=== PATIENT | female | born 1940 | race Asian ===

== ENCOUNTER → 2019-03-25 10:00 | Outpatient (CLI) | payer MEDICARE, OTHER, SELFPAY ==
--- NOTE | 2019-03-25 | DI.CT.S_ITS ---
PROCEDURE: CT ABDOMEN PELVIS W CON INDICATIONS: other specified disease of appendix TECHNIQUE: After the administration of oral and intravenous contrast, 5 mm thick sections acquired from the diaphragms to the symphysis. 5 mm thick coronal and sagittal reformats were performed. For radiation dose reduction, the following was used: automated exposure control, adjustment of mA and/or kV according to patient size. COMPARISON: [facility], , CT ABDOMEN/PELVIS WITH CONTRAST, 01/23/2018, 11:24. FINDINGS: Image quality: Excellent. ABDOMEN: Lung bases: Lung bases are clear. Heart size is normal. Solid organs: Liver is normal in size. There is a low density focus within the subcapsular aspect of the right hepatic lobe posteriorly measuring 8 mm, which was not seen on the prior examination, possibly due to differences in contrast bolus timing. Gallbladder is is not seen. Biliary system is non-dilated. Pancreas enhances normally. Spleen is normal in size and enhancement. No adrenal nodules. Kidneys are normal in size and enhancement, without hydronephrosis. Peritoneum and bowel: Small hiatal hernia. Stomach, small bowel, and colon loops are normal in caliber and wall thickness. Diverticulosis of the descending and sigmoid colon, with no evidence of acute diverticulitis. No free fluid or air. Nodes and vessels: No retroperitoneal or mesenteric adenopathy. Aorta and inferior vena cava are normal in caliber. Miscellaneous: A right anterior paramedian fat containing pelvic wall hernia is present, as before, measuring 45 mm. PELVIS: Genitourinary: Bladder wall thickness is normal. There is a status post hysterectomy. Left ovary is slightly ectopic, and demonstrates a 24 mm cyst, which is slightly increased (previously measuring 22 mm). There is a fat containing right ovarian mass measuring 17 mm, as before. Miscellaneous: No inguinal hernias or adenopathy. Bones: No suspicious bony lesions. No vertebral body compression fractures. IMPRESSION: 1. Low-density right hepatic lobe focus, possibly new since the prior examination. Initial further assessment with ultrasound examination is recommended. 2. 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 3. Slight increase in left ovarian cyst. Gynecological consultation recommended. 4. Right anterior fat containing pelvic wall hernia. 5. Small hiatal hernia. Dictated by: Toya Godinez M.D. on 03/25/2019 at 17:02 Approved by: Toya Godinez M.D. on 03/25/2019 at 17:06
== END ==
PROVIDERS: Visit Provider Physician Assistant Medical
DX: K38.8 Other specified diseases of appendix (principal); D27.0 Benign neoplasm of right ovary; N83.202 Unspecified ovarian cyst, left side; K57.30 Diverticulosis of large intestine without perforation or abscess without bleeding; K44.9 Diaphragmatic hernia without obstruction or gangrene; K46.9 Unspecified abdominal hernia without obstruction or gangrene
CPT/HCPCS: 74177; Q9967

== ENCOUNTER → 2019-05-08 09:30 | Outpatient (CLI) | payer MEDICARE, OTHER, SELFPAY ==
--- NOTE | 2019-05-08 | DI.US.S_ITS ---
PROCEDURE: US ABDOMEN LIMITED INDICATIONS: LIVER MASS TECHNIQUE: Real-time focused scanning was performed of the abdomen, with image documentation. COMPAR[place]: [facility], CT ABDOMEN/PELVIS WITH CONTRAST, 01/23/2018, 11:24. [facility], [place], CT ABDOMEN PELVIS W CON, 03/25/2019, 11:13. FINDINGS: The liver demonstrates normal size. The liver demonstrates generalized increased echogenicity. This decreases ultrasound sensitivity for detection of hepatic masses. There is a 9 mm hypoechoic focus seen involving right posterior liver. The gallbladder has been removed. There is no biliary dilatation, the common bile duct measures 7 mm. Visualized pancreas is unremarkable. IMPRESSION: There is a 9 mm hypoechoic is seen along the posterior right liver. This is similar to the prior CT dated 03/25/19. Differential diagnosis includes a hypoechoic mass or a cyst. Please consider followup in one year, as clinically appropriate. Dictated by: Lux Mazariegos M.D. on 05/08/2019 at 13:50 Approved by: Lux Mazariegos M.D. on 05/08/2019 at 13:52
== END ==
PROVIDERS: PCP Physician Assistant Medical; Referring Provider Physician Assistant Medical; Visit Provider Physician Assistant Medical
DX: R16.0 Hepatomegaly, not elsewhere classified (principal)
CPT/HCPCS: 76705